=== PATIENT | female | born 1970 | race American Indian/Alaskan Native ===

== ENCOUNTER 2017-07-21 07:54 | Emergency (ER) | payer OTHER ==
--- NOTE | 2017-07-21 15:24 | Emergency Department Report ---
ED General Adult HPI - General Chief complaint: Eye Problems Stated complaint: POSSIBLE PINK EYE Time Seen by Provider: 07/21/17 15:17 Source: patient Mode of arrival: Ambulatory Limitations: No Limitations - History of Present Illness Initial comments: Pt is a 47 year old female who presents with left eye pain that has been going on since a couple of hours ago. Pt states that pain is a 2/10 it is located in the left eye and noting makes the pain better or worse. Pt states that her supervisor [employer] noticed her pink eye at work. Pt denies being exposed to any sick contacts. Pt denies having any neck pain, headache, vision changes, fever or any chills. Pt denies having any trauma to her eye. - Related Data Previous Rx's Medication Instructions Recorded Last Taken Type Ferrous Sulfate [Feosol 325 MG tab] 325 mg PO BID #60 tablet 05/20/14 Unknown Rx Erythromycin [Erythromycin Ophth 10 applic OP Q6H #1 tube 07/21/17 Unknown Rx Oint] Allergies Allergy/AdvReac Type Severity Reaction Status Date / Time No Known Allergies Allergy Unverified 07/21/17 10:01 ED Review of Systems ROS: Stated complaint: POSSIBLE PINK EYE Other details as noted in HPI Constitutional: denies: chills, fever Eyes: eye pain. denies: eye discharge, vision change ENT: denies: ear pain, throat pain Respiratory: denies: cough, shortness of breath, wheezing Cardiovascular: denies: chest pain, palpitations Endocrine: no symptoms reported Gastrointestinal: denies: abdominal pain, nausea, diarrhea Genitourinary: denies: urgency, dysuria, discharge Musculoskeletal: denies: back pain, joint swelling, arthralgia Skin: denies: rash, lesions Neurological: denies: headache, weakness, paresthesias Psychiatric: denies: anxiety, depression Hematological/Lymphatic: denies: easy bleeding, easy bruising ED Past Medical Hx - Past Medical History Previous Medical History?: No Hx Congestive Heart Failure: No Hx Diabetes: Yes Hx Asthma: No Hx COPD: No - Surgical History Past Surgical History?: Yes Hx Appendectomy: Yes Additional Surgical History: hernia surgery. partial hysterectomy - Social History Smoking Status: Never Smoker Substance Use Type: None - Medications Home Medications: Home Medications Medication Instructions Recorded Confirmed Last Taken Type Ferrous Sulfate [Feosol 325 MG tab] 325 mg PO BID #60 tablet 05/20/14 Unknown Rx Erythromycin [Erythromycin Ophth 10 applic OP Q6H #1 tube 07/21/17 Unknown Rx Oint] ED Physical Exam - General Limitations: No Limitations General appearance: alert, in no apparent distress - Head Head exam: Present: atraumatic, normocephalic - Eye Eye exam: Present: conjunctival injection (left) - ENT ENT exam: Present: mucous membranes moist - Neck Neck exam: Present: normal inspection - Respiratory Respiratory exam: Present: normal lung sounds bilaterally. Absent: respiratory distress - Cardiovascular Cardiovascular Exam: Present: regular rate, normal rhythm. Absent: systolic murmur, diastolic murmur, rubs, gallop - GI/Abdominal GI/Abdominal exam: Present: soft, normal bowel sounds - Extremities Exam Extremities exam: Present: normal inspection - Back Exam Back exam: Present: normal inspection - Neurological Exam Neurological exam: Present: alert, oriented X3 - Psychiatric Psychiatric exam: Present: normal affect, normal mood - Skin Skin exam: Present: warm, dry, intact, normal color. Absent: rash ED Course Vital Signs 07/21/17 09:59 Temperature 98.2 F Pulse Rate 75 Respiratory 16 Rate Blood Pressure 135/77 O2 Sat by Pulse 98 Oximetry ED Medical Decision Making - Medical Decision Making Cdx: Viral conjunctivitis ddx: Bacterial conjunctivitis, allergic conjuctivitis I will write a rx for erythromycin and give pt f/u I will send pt home with erythromycin and f/u with a PCP. Discussed plan with patient and patient agrees with plan additional verbal discharge instructions were given. Critical care attestation.: If time is entered above; I have spent that time in minutes in the direct care of this critically ill patient, excluding procedure time. ED Disposition Clinical Impression: Viral conjunctivitis, left eye Disposition: DC-01 TO HOME OR SELFCARE Is pt being admited?: No Does the pt Need Aspirin: No Condition: Stable Instructions: Conjunctivitis (ED) Prescriptions: Erythromycin [Erythromycin Ophth Oint] 10 applic OP Q6H #1 tube Referrals: HORACE MALDONADO MD [Staff Physician] - 3-5 Days Forms: Work/School Release Form(ED)
[2017-07-21 15:50] VITALS: BP 120/85
== END 2017-07-21 15:51 | disposition home or self-care (01) ==
LOC: ED 07:54
DX: B30.8 Other viral conjunctivitis (principal); E11.9 Type 2 diabetes mellitus without complications; Z90.49 Acquired absence of other specified parts of digestive tract; Z90.711 Acquired absence of uterus with remaining cervical stump
CPT/HCPCS: 99282